=== PATIENT | female | born 1965 | race Caucasian/White ===

== ENCOUNTER 2020-05-24 18:48 | Emergency (ER) | payer MEDICARE ==
[~2020-05-24] VITALS: Ht 170.2 cm; Wt 131.8 kg
[2020-05-24 19:39] LABS: BASO # 0.1 10^3/uL (0.0-0.2); EOS # 0.4 10^3/uL (0.0-0.5); EOS % 4.4 % (0.0-3.0); HEMATOCRIT 40.9 % (36.0-47.0); HEMOGLOBIN 13.8 g/dl (12.0-15.5); LYMPH # 2.1 10^3/uL (1.5-5.0); LYMPH % 21.6 % (24.0-44.0); MEAN CORPUSCULAR HEMOGLOBIN 31.4 pg (27.0-33.0); MEAN CORPUSCULAR HGB CONC 33.7 g/dl (32.0-36.5); MONO # 0.6 10^3/uL (0.0-0.8); MONO % 6.3 % (0.0-5.0); NEUTROPHILS # 6.5 10^3/uL (1.5-8.5); NEUTROPHILS % 66.4 % (36.0-66.0); PLATELET COUNT, AUTOMATED 252 10^3/uL (150-450); WHITE BLOOD COUNT 9.8 10^3/uL (4.0-10.0)
[2020-05-24] MEDS ORDERED: GABA-843 PO (19:44)
[2020-05-24] MEDS ORDERED: LEXA1TAB2 PO (19:44)
[2020-05-24] MEDS ORDERED: CRES20TA2 PO (19:44)
[2020-05-24] MEDS ORDERED: METO1TAB32 PO (19:44)
[2020-05-24] MEDS ORDERED: XARE20TA PO (19:44)
[2020-05-24] MEDS ORDERED: IRBE300T7 PO (19:44)
[2020-05-24 20:14] LABS: ALBUMIN 3.6 GM/DL (3.2-5.2); ALT/SGPT 21 U/L (12-78); BILIRUBIN,DIRECT < 0.1 MG/DL (0.0-0.2); BILIRUBIN,TOTAL 0.3 MG/DL (0.2-1.0); BLOOD UREA NITROGEN 21 MG/DL (7-18); CALCIUM LEVEL 9.4 MG/DL (8.5-10.1); CARBON DIOXIDE LEVEL 28 MEQ/L (21-32); CHLORIDE LEVEL 107 MEQ/L (98-107); CREATININE FOR GFR 0.93 MG/DL (0.55-1.30); GLOMERULAR FILTRATION RATE > 60.0 (>51); GLUCOSE, FASTING 87 MG/DL (70-100); LIPASE 156 U/L (73-393); POTASSIUM SERUM 4.4 MEQ/L (3.5-5.1); SODIUM LEVEL 141 MEQ/L (136-145); TOTAL PROTEIN 7.5 GM/DL (6.4-8.2)
[2020-05-24 20:42] VITALS: BP 163/73
--- NOTE | 2020-05-24 21:10 | REPVR ---
PROCEDURE INFORMATION: Exam: XR Chest, 1 View Exam date and time: 05/24/2020 8:24 PM Age: 54 years old Clinical indication: Chest pain TECHNIQUE: Imaging protocol: XR of the chest Views: 1 view. COMPARISON: 1. CR Chest, 2 view PA, Lat 05/18/2016 1:[address] ANGIO CHEST 05/18/2016 3:32:45 AM FINDINGS: Tubes, catheters and devices: Embolization coils are noted in the left upper quadrant of the abdomen in the region of the splenic hilum. Lungs: Unremarkable. No consolidation. No pulmonary edema. Pleural space: Unremarkable. No pleural effusion or pneumothorax is identified. Heart/Mediastinum: Unremarkable. No cardiomegaly. Bones/joints: There are endplate spurs in the thoracic spine. IMPRESSION: No acute findings. Electronically signed by: Aaron Sorensen On 05/24/2020 21:10:12 PM
--- NOTE | 2020-05-29 21:07 | ECGEPIP ---
[facility] - ED Test Date: 2020-05-24 Pat Name: JASMIN OROZCO Department: Room: - Gender: Female Access Nurse: NR : [id number] Requested By: Yashira Langley Order Number: [id number] Reading MD: Mario Fritz Measurements Intervals Cecil Rate: 63 P: 14 IN: 192 QRS: -56 QRSD: 110 T: 5 QT: 417 QTc: 428 Interpretive Statements SINUS RHYTHM LEFT AXIS DEVIATION MODERATE VOLTAGE CRITERIA FOR LVH, CONSIDER NORMAL VARIANT BASELINE ARTIFACT NO PREVIOUS SEE SCANNED DOWNTIME REPORT
== END 2020-05-24 20:47 | disposition home or self-care (01) ==
LOC: M ED 18:48
DX: R07.9 Chest pain, unspecified (principal); I10 Essential (primary) hypertension; Z88.2 Allergy status to sulfonamides; Z88.6 Allergy status to analgesic agent